=== PATIENT | male | born 1970 | race Caucasian/White ===

== ENCOUNTER 2017-10-21 14:05 | Emergency (ER) | payer OTHER ==
[~2017-10-21] VITALS: Ht 180.3 cm; Wt 95.2 kg
[2017-10-21] MEDS ORDERED: IBUPROFEN600 MG PO (14:36)
[2017-10-21] MEDS ORDERED: KEFLEX500 MG PO (14:36)
== END 2017-10-21 15:36 | disposition home or self-care (01) ==
LOC: ED 14:05
PROC: 0HQFXZZ Repair Right Hand Skin, External Approach (ICD-10-PCS; principal; 2017-10-21)
DX: S61.216A Laceration without foreign body of right little finger without damage to nail, initial encounter (principal); Z23 Encounter for immunization; F17.200 Nicotine dependence, unspecified, uncomplicated; W26.8XXA Contact with other sharp object(s), not elsewhere classified, initial encounter; Y99.0 Civilian activity done for income or pay
CPT/HCPCS: 12001; 73140; 90471; 90715; 99283

== ENCOUNTER 2017-10-30 13:43 | Emergency (ER) | payer OTHER ==
[~2017-10-30] VITALS: Ht 180.3 cm; Wt 95.2 kg
[~2017-10-30 13:43] MED LIST: IBUPROFEN600 MG PO; KEFLEX500 MG PO
== END 2017-10-30 14:21 | disposition home or self-care (01) ==
LOC: ED 13:43
DX: Z48.02 Encounter for removal of sutures (principal)